=== PATIENT | male | born 1970 | race Caucasian/White ===

== ENCOUNTER → 2020-01-19 | Outpatient (CLI) | payer OTHER ==
--- NOTE | 2020-01-19 11:53 | KCIC ---
2 views of the left calcaneus without comparison for left heel pain for one year, intense pain with weightbearing, no known injury. FINDINGS: There is no fracture or acute osseous abnormality. There is a large calcaneal bone spur, as well as a large calcaneal enthesophyte. Remaining visualized joints and soft tissues are grossly unremarkable. IMPRESSION: 1. No acute osseous abnormality. 2. Prominent calcaneal bone spur and calcaneal enthesophyte. Electronically signed by: Micheal Alejandra MD (01/19/2020 11:50 AM) [id number]
== END | disposition home or self-care (01) ==
LOC: KCIC 09:28
PROVIDERS: ATTEND Nurse Practitioner Family
DX: M77.32 Calcaneal spur, left foot (principal)
CPT/HCPCS: 73650

== ENCOUNTER 2020-06-11 10:16 | Emergency (ER) | payer OTHER ==
[~2020-06-11] VITALS: Ht 180.3 cm; Wt 127.2 kg
--- NOTE | 2020-06-11 10:52 | PHYS DOC ---
Past Medical History Past Medical History: No Pertinent History Past Surgical History: No Surgical History Smoking Status: Never Smoker Alcohol Use: Occasionally General Adult EDM: Chief Complaint: COUGH HPI: HPI: Patient is a 49 year old male who presents with myalgias, cough and congestion and low-grade fever for the last 2 days. 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 Patient has had some leg pain and back pain. Patient denies any chest pain or shortness of breath. Patient's T-max was 99.9. Review of Systems: Review of Systems: Constitutional: Complains of fever and fatigue Eyes: Denies change in visual acuity. [] HENT: Complains of congestion Respiratory: Complains of cough but no shortness of breath Cardiovascular: Denies chest pain or edema. [] GI: Denies abdominal pain, vomiting or diarrhea, patient has nausea : Denies dysuria. [] Musculoskeletal: Complains of back pain and myalgias Integument: Denies rash. [] Neurologic: Denies headache, focal weakness or sensory changes. [] Endocrine: Denies polyuria or polydipsia. [] Lymphatic: Denies swollen glands. [] Psychiatric: Denies depression or anxiety. [] Heart Score: Risk Factors: Risk Factors: DM, Current or recent (<one month) smoker, HTN, HLP, family history of CAD, obesity. Risk Scores: Score 0 - 3: 2.5% MACE over next 6 weeks - Discharge Home Score 4 - 6: 20.3% MACE over next 6 weeks - Admit for Clinical Observation Score 7 - 10: 72.7% MACE over next 6 weeks - Early Invasive Strategies Allergies: Allergies: Allergies Coded Allergies Type Severity Reaction Last Updated Verified No Known Drug Allergies 06/11/20 No Physical Exam: PE: Constitutional: Well developed, well nourished, no acute distress, non-toxic a ppearance. [] HENT: Normocephalic, atraumatic, bilateral external ears normal, mild pharyngeal erythema without tonsillar exudate or abscess nose normal. [] Eyes: PERRLA, EOMI, conjunctiva normal, no discharge. [] Neck: Normal range of motion, no tenderness, supple, no stridor. [, No meningeal signs Cardiovascular:Heart rate regular rhythm, peripheral pulse intact cap refill is brisk Lungs & Thorax: Bilateral breath sounds clear, no respiratory distress Abdomen: soft, no tenderness, no masses, no pulsatile masses. [] Skin: Warm, dry, no erythema, no rash. [] Back: No tenderness, no CVA tenderness. [] Extremities: No tenderness, no cyanosis, no clubbing, ROM intact, no edema. [] Neurologic: Alert and oriented X 3, normal motor function, normal sensory function, no focal deficits noted. [] Psychologic: Affect normal, judgement normal, mood normal. [] Current Patient Data: Labs: Laboratory Tests Test 06/11/20 10:35 Influenza Type A Antigen Negative Influenza Type B Antigen Negative Vital Signs: Vital Signs Date Time Temp Pulse Resp B/P (MAP) Pulse Ox O2 Delivery O2 Flow Rate FiO2 06/11/20 10:24 98.9 69 20 216/120 (152) 95 Room Air 98.9 EKG: EKG: [] Radiology/Procedures: Radiology/Procedures: [] Course & Med Decision Making: Course & Med Decision Making Pertinent Labs and Imaging studies reviewed. (See chart for details) [] 49-year-old male presents with symptoms consistent with COVID-19. Flu test is negative. Patient is nontoxic and has no increased work of breathing. Patient told to isolate till results come back. Patient given prescription for Zofran to take as needed for nausea. Libra Disclaimer: Libra Disclaimer: This electronic medical record was generated, in whole or in part, using a voice recognition dictation system. Departure Departure Impression: Primary Impression: Fever Additional Impression: Suspected COVID-19 virus infection Disposition: 01 DC HOME SELF CARE/HOMELESS Condition: STABLE Referrals: BRYCE HELLER APRN (PCP) 2-3 DAYS Patient Instructions: Viral Syndrome Additional Instructions: EMERGENCY DEPARTMENT GENERAL DISCHARGE INSTRUCTIONS THANK YOU for coming to [facility] Emergency Department (ED) today and trusting us with your care. We trust that you had a positive experience in our Emergency Department. If you wish to speak to the department Management you can contact the supervisor jewelry department at . YOUR FOLLOW UP INSTRUCTIONS ARE FOLLOWS: Do you have a private doctor? If you do not have a private doctor, please ask for a resource list of physicians or clinics that may be able to assist you with follow up care. The Emergency Physician has interpreted your x-rays. The X-ray specialist will also review them. If there is a change in the findings you will be notified in 48 hours when at all possible. A lab test or lab culture may have been done, your results will be reviewed and you will be notified if you need a change in treatment. ADDITIONAL INSTRUCTIONS AND INFORMATION Your care today has been supervised by a physician who is specially trained in emergency care. Many problems require more than one evaluation for a complete diagnosis and treatment. We recommend that you schedule your follow up appointment as recommended to ensure complete treatment of your illness or injury. If you are unable to obtain follow up care and continue to have a problem, or if your condition worsens we recommend that you return to the ED. We are not able to safely determine your condition over the phone nor are we able to give sound medical advice over the phone. For these safety reasons, if you call for medical advice we will ask you to come to the ED for further evaluation If you have any questions regarding these discharge instructions please call the ED at . SAFETY INFORMATION In the interest of safety, wellness, and injury prevention; we encourage you to wear your seatbelt, if you smoke; quit smoking, and we encourage your family to use protective helmet for bicycling and other sporting events that present an increased risk for head injury. IF YOUR SYMPTOMS WORSEN OR NEW SYMPTOMS DEVELOP, OR YOU HAVE CONCERNS ABOUT YOUR CONDITION; OR IF YOUR CONDITION WORSENS WHILE YOU ARE WAITING FOR YOUR FOLLOW UP APPOINTMENT; EITHER CONTACT YOUR PRIMARY CARE DOCTOR, THE PHYSICIAN WHOSE NAME AND NUMBER YOU WERE GIVEN, OR RETURN TO THE ED IMMEDIATELY. You have been tested for or diagnosed with COVID-19. It is an infection caused by a new type of coronavirus. COVID-19 will cause cold-like or mild flu symptoms in most. It can cause more severe symptoms like problems breathing in some. There is no treatment for COVID-19. The body will clear the infection over time. Self-care will help to ease discomfort. Steps to Take: Self-Care Rest as needed. Healthy habits may help you feel better. Steps include: Choose healthy foods including fruits and vegetables. Drink water throughout the day. Get plenty of sleep each night. If you smoke, try to quit. It may ease breathing. Avoid alcohol. Keep Others Healthy The virus can spread to others. Droplets are released every time you sneeze or cough. The droplets can get into the mouth, nose, or eyes of people near you and lead to infection. To lower the chances of spreading COVID-19 to others: Stay at home until your doctor has said it is safe to leave. If you tested positive this will mean staying isolated until both of the following are true: At least 7 days have passed since the start of illness. You are free of fever for at least 72 hours without the use of medicine. During this time: - Avoid public areas, events, or transportation. Do not return to work or school until your doctor has said it is safe to do so. - Call ahead if you need to go to a medical center. Let them know you may have COVID-19. It will help them guide you where to go. They may also ask you to wear a facemask when you come to the office. - If you call for emergency medical services, let them know you may have COVID- 19. While at home: - Try to avoid close contact with others. Stay about 6 feet away. - If possible, spend most of your time in a separate room from others. - Use a face mask if you will be in close contact with others such as sharing a room or vehicle. - Have someone wipe down common surfaces in the home. Use household insulation cutter every day on areas like doorknobs, counters, or sinks. - Cough or sneeze into a tissue. Throw the tissue away right after use. If a tissue is not available, cough or sneeze into your elbow. - Wash your hands often. Wash them after sneezing or coughing. Use soap and water and wash for at least 20 seconds. Alcohol based hand dry cleaner helper can be used if soap and rachid er is not available. - Do not prepare food for others. Avoid sharing personal items like forks, spoons, or toothbrushes. - Avoid close contact with pets while you are sick. There is no evidence of the virus passing to pets. This is a safety step until more is known about this virus. Isolation can be frustrating. Social interaction can help. Keep in touch with friends and family through phone and tech options. You can still interact with others in your home, just keep a safe distance of about 6 feet. Follow-up: Your doctors office will check in with you to see if there are any changes in your health. You may be asked to keep track of symptoms to share with them. They will also let you know when you are clear to be in public again. Problems to Look Out For: Contact your doctor if your recovery is not going as you expect. Get emergency care if you have problems such as: - Trouble breathing - Nonstop chest pain or pressure - Changes in awareness, confusion, or problems waking - Lips or face have bluish color - Worsening of symptoms If you think you have an emergency, call for emergency medical services right away. As taken from [facility] Ondansetron Hcl (ZOFRAN) 4 Mg Tablet 1 TAB PO PRN Q6-8HRS for NAUSEA, #15 TAB Prov: GAYATRI MORENO MD 06/11/20 GAYATRI MORENO MD Jun 11, 2020 10:52
[2020-06-11 11:15] LABS: INFLUENZA A PATIENT NEGATIVE (NEGATIVE); INFLUENZA B PATIENT NEGATIVE (NEGATIVE)
[2020-06-11] MEDS ORDERED: ONDA4TAB7 PO (11:23)
[2020-06-11 11:30] VITALS: BP 208/108
--- NOTE | 2020-06-13 10:21 | NUR ---
IP: Pt is the of an employee. Pt was informed of positive COVID test by Fang Rojas, Employee Health Nurse, and instructed on need for quarantine x 10-14 days pending symptoms. Pt verbalized understanding.
== END 2020-06-11 11:30 | disposition home or self-care (01) ==
LOC: ER 10:16
DX: U07.1 COVID-19 (principal); R09.81 Nasal congestion; R50.9 Fever, unspecified; R05 Cough
CPT/HCPCS: 87804; 99283; C9803; U0003